=== PATIENT | male | born 1970 | race Caucasian/White ===

== ENCOUNTER → 2018-07-04 10:36 | Outpatient (CLI) | payer OTHER, SELFPAY ==
[2018-07-04 12:13] LABS: Add Manual Diff / Slide Review NO; Basophils Percent Auto 0.6 % (0-2); Eosinophils Percent Auto 1.3 % (2-4); Hematocrit 46.1 % (41-53); Hemoglobin 15.7 g/dL (13.5-17.5); Lymphocytes Percent Auto 30.8 % (25-40); Mean Corpuscular HGB Conc 34.1 % (30-36); Mean Corpuscular Hemoglobin 29.8 PG (26-34); Mean Corpuscular Volume 87.3 fL (80-100); Monocytes Percent Auto 9.7 % (3-14); Neutrophils Absolute Auto 3500 /uL (3000-5900); Neutrophils Percent Auto 57.6 % (50-75); Platelet Count 225 X10^3/uL (150-400); Red Blood Cell Count 5.27 X10^6/uL (4.5-5.9); Red Cell Distribution Width 13.7 % (11.6-14.8); White Blood Cell Count 6.1 X10^3/uL (4.5-11.0)
[2018-07-04 12:31] LABS: Alanine Aminotransferase 50 IU/L (21-72); Albumin 4.4 g/dL (3.5-5.0); Albumin Globulin Ratio 1.5 (1.0-2.8); Alkaline Phosphatase 75 U/L (38-126); Aspartate Aminotransferase 36 IU/L (17-59); Bilirubin Total 0.6 mg/dL (0.2-1.3); Blood Urea Nitrogen 20 mg/dL (9-20); Calcium 9.3 mg/dL (8.4-10.2); Carbon Dioxide 28 mmol/L (22-32); Chloride 101 mmol/L (98-107); Cholesterol 182 mg/dL (140-199); Estimated Glomerular Filt Rate > 60.0 mL/min (>60); Glucose 106 mg/dL (70-100); HDL Cholesterol 37 mg/dL (40-60); HEMOLYSIS < 15 (0-50); LDL Cholesterol Calculated 127 mg/dL (<100); Potassium 4.7 mmol/L (3.4-5.1); Sodium 143 mmol/L (137-145); Total Protein 7.4 g/dL (6.3-8.2); Triglycerides 91 mg/dL (35-150)
== END ==
PROVIDERS: PCP Family Medicine; Visit Provider Family Medicine
DX: Z79.899 Other long term (current) drug therapy (principal); I10 Essential (primary) hypertension; E78.5 Hyperlipidemia, unspecified
CPT/HCPCS: 36415; 80053; 80061; 85025

== ENCOUNTER → 2019-10-31 13:57 | Outpatient (CLI) | payer OTHER, SELFPAY ==
[2019-10-31 15:49] LABS: Add Manual Diff / Slide Review NO; Basophils Absolute Auto 100 /uL (0-100); Basophils Percent Auto 0.6 % (0-2); Eosinophils Absolute Auto 100 /uL (0-450); Eosinophils Percent Auto 1.3 % (2-4); Hematocrit 48.5 % (41-53); Hemoglobin 16.6 g/dL (13.5-17.5); Lymphocytes Absolute Auto 2300 /uL (1100-4500); Lymphocytes Percent Auto 26.3 % (25-40); Mean Corpuscular HGB Conc 34.2 % (30-36); Mean Corpuscular Hemoglobin 30.3 PG (26-34); Mean Corpuscular Volume 88.4 fL (80-100); Monocytes Absolute Auto 700 /uL (0-900); Monocytes Percent Auto 7.7 % (3-14); Neutrophils Absolute Auto 5600 /uL (1500-7000); Neutrophils Percent Auto 64.1 % (50-75); Platelet Count 238 X10^3/uL (150-400); Red Blood Cell Count 5.48 X10^6/uL (4.5-5.9); Red Cell Distribution Width 13.5 % (11.6-14.8); White Blood Cell Count 8.8 X10^3/uL (4.5-11.0)
[2019-10-31 16:09] LABS: Alanine Aminotransferase 42 IU/L (<50); Albumin 4.5 g/dL (3.5-5.0); Albumin Globulin Ratio 1.3 (1.0-2.8); Alkaline Phosphatase 86 U/L (38-126); Aspartate Aminotransferase 35 IU/L (17-59); BUN Creatinine Ratio 22.2 (6-22); Bilirubin Total 0.7 mg/dL (0.2-1.3); Blood Urea Nitrogen 20 mg/dL (9-20); Calcium 10.1 mg/dL (8.4-10.2); Carbon Dioxide 28 mmol/L (22-32); Chloride 102 mmol/L (98-107); Cholesterol 225 mg/dL (140-199); Estimated Glomerular Filt Rate > 60.0 mL/min (>60); Globulin 3.5 g/dL (1.7-4.1); Glucose 105 mg/dL (70-100); HDL Cholesterol 40 mg/dL (40-60); HEMOLYSIS < 15 (0-50); LDL Cholesterol Calculated 146 mg/dL (<100); Potassium 4.7 mmol/L (3.4-5.1); Sodium 140 mmol/L (137-145); Triglycerides 195 mg/dL (35-150)
[2019-10-31 16:36] LABS: Prostate Specific Antigen Scrn 1.63 ng/mL (0.1-4.0)
== END ==
PROVIDERS: Family Provider Family Medicine; PCP Family Medicine; Referring Provider Family Medicine; Visit Provider Family Medicine
DX: Z12.5 Encounter for screening for malignant neoplasm of prostate (principal); I10 Essential (primary) hypertension; E78.5 Hyperlipidemia, unspecified; Z79.899 Other long term (current) drug therapy
CPT/HCPCS: 36415; 80053; 80061; 85025; G0103

== ENCOUNTER → 2021-03-30 11:02 | Outpatient (CLI) | payer OTHER, SELFPAY ==
[2021-03-30 12:53] LABS: COVID19 -Nasal RAPID Negative (Negative)
== END ==
PROVIDERS: Visit Provider Student in an Organized Health Care Education/Training Program
DX: Z01.812 Encounter for preprocedural laboratory examination (principal); Z20.822 Contact with and (suspected) exposure to COVID-19
CPT/HCPCS: 87635

== ENCOUNTER 2021-04-01 15:17 | Day surgery (SDC) | payer OTHER, SELFPAY ==
--- NOTE | 2021-04-01 | PATH_ITS ---
[facility] Accession Number: [id number] . 01 Material submitted: . colon - DESCENDING COLON 1CM . 02 Diagnosis: Descending Colon, 1 cm, Biopsy: Hyperplastic polyp. MRV 04/05/2021 1021 Local . 02 Electronically signed: . Sierra Corrigan MD, Pathologist NPI- [id number] . 01 Gross description: . DESCENDING COLON 1CM: Received in formalin are multiple fragment(s) of melton, soft tissue measuring 1.3 x 1.0 x 0.4 cm in aggregate submitted entirely in 1 cassette(s) /CHIOMA 04/02/2021 0645 Local . 02 Pathologist provided ICD-10: K63.5 . 02 CPT . 536949 Performed at: 01 [facility] [address], [place], [place] [id number] MD Polo Myles MD Phone: [phone] Performed at: 02 [facility] [address] [place], [place] [id number] MD Sierra Corrigan MD Phone: [phone]
--- NOTE | 2021-04-01 12:20 | P.HP_ITS ---
History of Present Illness History of Present Illness Date Patient Seen: 04/01/21 Chief complaint: SDC Narrative: 50 Years Old Male seen today for consideration of a screening colonoscopy. There have been no lower GI symptoms suggesting disease such as change in bowel habits, bleeding, abdominal pain or anemia. There's been no family history of colon cancer or colon polyps. Overall health issues have been stable, including no major cardiac events for at least 6 weeks. 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 Education: 4 years college Patient History Medical History Hyperlipidemia Hypertension Insomnia, persistent Morbid obesity with BMI of 40.0-44.9, adult Obstructive sleep apnea of adult Family & Social History Social History: household members family lives independently Yes caregiver/support person No Tobacco & Substance use: alcohol intake never Meds Home Medications and Allergies Home Medications Medication Instructions Recorded Confirmed Type Respironics Dreamstation CPAP #1 ea 12/26/18 02/02/21 History lisinopril 10 1 tab PO DAILY 12/26/18 04/01/21 History mg-hydrochlorothiazide 12.5 mg tablet lovastatin 40 mg tablet 40 mg PO DAILY 12/26/18 04/01/21 History trazodone 100 mg tablet 100 mg PO BEDTIME PRN MDD 100 08/19/20 04/01/21 History Allergies Allergy/AdvReac Type Severity Reaction Status Date / Time No Known Drug Allergies Allergy Verified 04/01/21 15:02 Review of Systems Review of Systems Narrative: See HPI. Exam Narrative Exam Narrative: GENERAL: Alert and oriented, appearing stated age and in no acute distress. HEENT: Head normocephalic/atraumatic. Pupils equal, round, and reactive to light and accomodation. Extraocular muscles intact. Tympanic membranes clear. Nasal mucosa moist, septum midline. Oral mucosa moist, no lesions. Neck soft and supple, no lymphadenopathy. LUNGS: Clear to ausculation bilaterally, no wheezes, rhonchi or rales. CV: Normal S1 and S2 with regular rate and rhythm, no audible murmurs, rubs or gallops. ABDOMEN: Soft, non-tender, non-distended, no organomegaly. Positive bowel sounds. EXTREMITIES: No clubbing, cyanosis, or edema. NEURO: Cranial nerves II through XII grossly intact, no focal deficits. PSYCH: Alert and oriented x 3. SKIN: No concerning lesions. Assessment & Plan Assessment & Plan narrative: 1. Screening for colon cancer Plan for colonoscopy. The nature and character of the procedure as well as anticipated results were discussed. The possibility of not completing the procedure was also discussed. Possible complications including aspiration pneumonia, bleeding, perforation and reaction to medications either for sedation or preparation and missed lesions were discussed. Questions were answered and proceeding to the colonoscopy was elected. Informed consent signed. 2. Obesity Due to BMI of 44 and sleep apnea, patient is high risk. Will consult MD anesthesia for this high risk patient. I sincerely appreciate the referral allowing me to participate in this patient's care. Please contact me with any questions or concerns.
--- NOTE | 2021-04-01 12:23 | PM.OP.ENDO ---
Operative Date/Time/Diagnoses Date of procedure: 04/01/21 Procedure Notes SCOAP/Timeout: 4:23 p.m. Procedure in detail: ENDOSCOPIST: Klarissa Canales MD Anesthesiologist: Dr. Asif Sedation start time: 4:25 p.m. Sedation end time: 5:03 p.m. PROCEDURE: Colonoscopy with hot snare and methylene blue lift INDICATIONS: 1. Screening for colon cancer MEDICATION: Levsin 0.125 mg sublingual, incremental doses of Versed and fentanyl until appropriate level sedation achieved. ASA CLASS: 3 CECAL WITHDRAWAL TIME: 23 minutes COMPLICATIONS: None. EXTENT OF PROCEDURE: Cecum. QUALITY OF PREP: Good with portions of liquid stool. PROCEDURE: Prior to insertion of the colonoscope, a digital rectal examination was accomplished with circumferential palpation of the distal rectal mucosa without significant findings being noted. The high-definition colonoscope was passed into the rectum in the usual fashion and advanced over to the cecum without difficulty. The ileocecal valve, appendiceal stoma, and medial wall all could be inspected and no abnormalities were seen. ASCENDING COLON: As the colonoscope was withdrawn, care was taken to expose and inspect the haustral folds and no abnormalities were seen. HEPATIC FLEXURE: Normal, no polyps, diverticula or other abnormalities. TRANSVERSE COLON: Normal, no polyps, diverticula or other abnormalities. DESCENDING COLON: A 1 cm polyp was seen, lifted with methylene blue and removed with hot snare, excellent hemostasis. Otherwise, minor diverticulosis. SIGMOID COLON: Minor diverticulosis, otherwise, normal, no polyps or other abnormalities. RECTUM: Normal. J maneuver was produced. There was no significant perianal disease. The J maneuver was broken. The remainder of the rectum was inspected and there was no external hemorrhoid disease. The scope was withdrawn. IMPRESSION: 1. Ascending polyp x1, 1 cm, lifted with methylene blue and removed with hot snare 2. Left-sided diverticulosis, minor PLAN: 1. Follow-up in clinic status post pathology results. The possibility of a missed lesion including a malignancy has been discussed with the patient previously. Potential alarm symptoms have been discussed and should be reported immediately.
[2021-04-01 15:37] VITALS: BP 128/76; PULSE 78; RESP 18; TEMP 37; O2SAT 96; BMI 44.6
[2021-04-01] MEDS: LACTATED RINGERS 1,000 ML 200 ML IV (15:49)
[2021-04-01] MEDS: HYOSCYAMINE 0.125 MG TABLET PO (15:59)
[2021-04-01] MEDS: METHYLENE BLUE 50 MG/10 ML VIAL INJ (17:09)
[2021-04-01 17:13] VITALS: BP 103/62; PULSE 79; RESP 20; TEMP 36.8; O2SAT 94
[2021-04-01 17:18] VITALS: BP 104/65; PULSE 77; RESP 16; O2SAT 98
[2021-04-01 17:23] VITALS: BP 120/68; PULSE 78; RESP 20; TEMP 36.8; O2SAT 97
[2021-04-01 17:28] VITALS: BP 99/63; PULSE 72; RESP 14; O2SAT 95
== END 2021-04-01 17:56 | disposition home or self-care (01) ==
PROVIDERS: Referring Provider Student in an Organized Health Care Education/Training Program; Visit Provider Student in an Organized Health Care Education/Training Program
PROC: 0DJD8ZZ Inspection of Lower Intestinal Tract, Via Natural or Artificial Opening Endoscopic (ICD-10-PCS; CPT 45378; principal; 2021-04-01 16:15)
DX: Z12.11 Encounter for screening for malignant neoplasm of colon (principal); G47.33 Obstructive sleep apnea (adult) (pediatric); I10 Essential (primary) hypertension; E66.01 Morbid (severe) obesity due to excess calories; Z68.41 Body mass index [BMI] 40.0-44.9, adult; K57.30 Diverticulosis of large intestine without perforation or abscess without bleeding; K63.5 Polyp of colon
CPT/HCPCS: 45381; 45385; Q9968

== ENCOUNTER → 2023-03-14 13:08 | Outpatient (ROUT) | payer OTHER, SELFPAY | PROVIDERS: Visit Provider Dermatology | DX: L08.9 Local infection of the skin and subcutaneous tissue, unspecified (principal) | CPT/HCPCS: 87070; 87077; 87186; 87205 ==

== ENCOUNTER → 2023-04-02 12:03 | Outpatient (ROUT) | payer OTHER, SELFPAY | PROVIDERS: Visit Provider Dermatology | DX: L08.9 Local infection of the skin and subcutaneous tissue, unspecified (principal) | CPT/HCPCS: 87070; 87075; 87077; 87102; 87186; 87205 ==

== ENCOUNTER → 2024-08-18 08:40 | Outpatient (CLI) | payer OTHER, SELFPAY ==
[2024-08-18 09:14] LABS: Hemoglobin A1C% w Est Avg Glu 5.5 % (4.0-6.0)
== END ==
PROVIDERS: PCP Family Medicine; Referring Provider Family Medicine; Visit Provider Family Medicine
DX: E11.65 Type 2 diabetes mellitus with hyperglycemia (principal)
CPT/HCPCS: 36415; 83036

== ENCOUNTER → 2024-11-06 11:08 | Outpatient (CLI) | payer OTHER, SELFPAY ==
[2024-11-06 12:11] LABS: Hemoglobin A1C% w Est Avg Glu 5.3 % (4.0-6.0)
== END ==
PROVIDERS: PCP Family Medicine; Referring Provider Family Medicine; Visit Provider Family Medicine
DX: E11.65 Type 2 diabetes mellitus with hyperglycemia (principal)
CPT/HCPCS: 36415; 83036

== ENCOUNTER → 2025-01-29 10:40 | Outpatient (CLI) | payer OTHER, SELFPAY ==
--- NOTE | 2025-01-29 10:46 | DI.RAD.S_ITS ---
PROCEDURE: XR LUMBAR SPINE MIN 4V INDICATIONS: Lumbago with sciatica, right side TECHNIQUE: 5 views of the lumbar spine acquired, including flexion and extension views. COMPARISON: None. FINDINGS: Bones: 5 nonrib-bearing vertebrae are present. There is mild grade 1 anterolisthesis of L4 on L5. No acute vertebral body compression fractures. No suspicious bony lesions. Moderate multilevel lumbar spondylosis with degenerative endplate changes, mild disc space loss, and associated facet arthropathy. Findings are most pronounced at L4-5 and L5-S1. Soft tissues: Overlying bowel gas pattern is normal. No suspicious soft tissue calcifications. Flexion/extension: There is normal range of motion, with preserved normal alignment. IMPRESSION: Lumbar spine without acute osseous abnormalities. Moderate multilevel lumbar spondylosis. Grade 1 anterolisthesis of L4 on L5. No evidence for instability on flexion or extension views. Dictated by: Momo Rueda M.D. on 01/29/2025 at 15:52 Approved by: Momo Rueda M.D. on 01/29/2025 at 15:54
== END ==
PROVIDERS: PCP Family Medicine; Referring Provider Family Medicine; Visit Provider Family Medicine
DX: M54.41 Lumbago with sciatica, right side (principal); M43.16 Spondylolisthesis, lumbar region; M47.816 Spondylosis without myelopathy or radiculopathy, lumbar region; M47.817 Spondylosis without myelopathy or radiculopathy, lumbosacral region; G89.29 Other chronic pain
CPT/HCPCS: 72110